=== PATIENT | male | born 1995 | race Caucasian/White ===

== ENCOUNTER 2018-05-25 09:05 | Emergency (ER) | payer MEDICAID ==
[~2018-05-25] VITALS: Ht 167.6 cm; Wt 72.7 kg
[2018-05-25 09:13] VITALS: BP 138/73
[2018-05-25] MEDS ORDERED: SULF1TAB49 PO (10:32)
== END 2018-05-25 10:43 | disposition home or self-care (01) ==
LOC: ER 09:08
DX: L02.415 Cutaneous abscess of right lower limb (principal); Z88.8 Allergy status to other drugs, medicaments and biological substances; Z79.899 Other long term (current) drug therapy; Z86.14 Personal history of Methicillin resistant Staphylococcus aureus infection
CPT/HCPCS: 87070; 87077; 87186; 99284

== ENCOUNTER 2025-07-17 09:58 | Emergency (ER) | payer MEDICAID ==
[~2025-07-17] VITALS: Ht 167.6 cm; Wt 79.8 kg
[2025-07-17 10:18] VITALS: BP 131/89; PULSE 60; RESP 18; O2SAT 98
[2025-07-17] MEDS ORDERED: CLIN300C63 PO (12:26)
[2025-07-17] MEDS ORDERED: HYDR-3972 PO (12:26)
--- NOTE | 2025-07-17 12:26 | Physician Documentation ---
History of Present Illness ~ Chief Complaint: Mouth Pain Stated Complaint: TOOTH PAIN Time Seen by MD: 11:12 Primary Medical Doctor: NONE Source: patient Mode of Arrival: POV Exam Limitations: no limitations HPI 29-year-old male with chief complaint right lower dental pain that he states is at his right back wisdom tooth that started two weeks ago. Pain has been progressive getting progressively worse and states the swelling started yeste rday. No pre arrival treatment. Has not been on antibiotics for this. Pain radiates into his ear. Pain is worse with any pressure to area when he tries to eat. No sore throat, fever, sinus pain, cp. Medication Reconciliation Allergies: Coded Allergies: red dye (Verified Allergy, Unknown, 07/17/25) Uncoded Allergies: PENICILLIN (Allergy, Intermediate, 05/25/18) Past Medical History Past Medical History: MRSA Abscess Past Surgical History: no surgical history Drug Use: none Lives with: Family Lives In: Home Review of Systems All Other Systems at this time: Reviewed and Negative Physical Exam Vital Signs: Temperature: 97.9, Source: Temporal, Heart Rate: 60, Respiratory Rate: 18, BP: 131/89, Pulse Oximetry: 98, Weight: 79.800 Oxygen Flow Rate: 0 Physical Exam General Appearance: Alert, WD/WN. NAD. HEENT: NCAT, PERRL, EOMI. Right-sided facial swelling, otherwise normal visual inspection of face. Right lower wisdom tooth is partially visible, gingiva is growing up and over the top of the wisdom tooth the gingiva is erythematous, edematous and tender to palpation. Posterior pharyngeal wall normal. Neck: Supple, trachea midline. Right submandibular lymphadenopathy with tenderness. Cardiovascular: RRR. No m/r/g. Lungs: CTAB. Breathing unlabored Extremities: Normal inspection. No edema. Skin: Warm/dry, normal color Neurological: Alert and oriented x4, normal gait. Psychiatric: Affect congruent with mood. Progress Results/Orders Results/Orders Vital Signs 07/17/25 10:18 Temp 97.9 Pulse 60 Resp 18 B/P (MAP) 131/89 Pulse Ox 98 O2 Flow Rate 0 Medical Decision Making Tooth Diff. Dx: Considerations: Include: Alveolar fracture, Aveolar osteitis, ANUG, Facial cellulitis, Periapical abscess, Periodontal abscess, Post-extractio n bleeding, Pulpitis, Trigeminal neuralgia, Tooth-avulsion, Tooth-eruption, Tooth-fracture, Tooth-subluxation, Other Departure Time of Disposition: 12:27 Disposition: 01 HOME / SELF CARE / HOMELESS Impression: Primary Impression: Acute pericoronitis Condition: Stable Discharge Instructions: Diet and Dental Disease Additional Instructions: salt water rinses antibiotic try to avoid chewing on this side f/u with oral surgery to have your wisdom tooth removed otherwise this will continue to occur Departure Forms: Excuse form Work or School Excused From: Work Excuse beginning now through the following date: Jul 19, 2025 May Return but still avoid physical Activity from now until: Jul 20, 2025 Referrals: NO PRIMARY CARE PROVIDER (PCP) Prescriptions Hydrocodone Bit/Acetaminophen (Hydrocodon-Acetaminophn 10-325 tablet) 10mg- 325mg Tablet 1 TAB PO TID PRN PRN for pain for 4 Days, #12 TAB dx: K05.2 Prov: JULIETTE MCKENZIE 07/17/25 Clindamycin HCl (Clindamycin HCl) 300 Mg Capsule 1 CAP PO QID for 10 Days, #40 CAP Prov: JULIETTE MCKENZIE 07/17/25 Education Educated: Patient Educated regarding: diagnosis, treatment, need for follow up Signature Scribe Signature: x Attestation: JULIETTE Charles Jul 17, 2025 12:26
[2025-07-17 12:49] VITALS: TEMP 98
== END 2025-07-17 12:50 | disposition home or self-care (01) ==
LOC: ER 09:59
DX: K05.20 Aggressive periodontitis, unspecified (principal); Z88.8 Allergy status to other drugs, medicaments and biological substances
CPT/HCPCS: 99283